=== PATIENT | female | born 1970 | race Caucasian/White ===

== ENCOUNTER 2017-12-15 16:19 | Emergency (ER) | payer BC ==
[2017-12-15 16:45] VITALS: BP 144/89
--- NOTE | 2017-12-15 17:03 | UC ---
Lower Extremity/Ankle HPI - HPI Summary HPI Summary: 46 y/o female presents to the urgent care c/o B/L great toe nail infection w/ ingrown toe nails and oozing yellowish discharge for the past week. Pt reports he has PMHX of breast cancer and DM about to finished her last treatment of Taxol next week. Pt states she saw the infection and though she can wait until her last treatment next week. However, she saw the yellowish nail discharge. Pain is 4/10 at touch. Pt denies fever, numbness or tingling sensation over the toes, SOB, chest pain, abdominal pain, N/V/D - History of Current Complaint Chief Complaint: UCLowerExtremity Stated Complaint: BILATERAL GREAT TOE COMPLAINT Time Seen by Provider: 12/15/17 17:02 Hx Obtained From: Patient Hx Last Menstrual Period: n/a ?: No Onset/Duration: Gradual Onset, Lasting Weeks - 1 week, Worse Since - this morning Severity Initially: Mild Severity Currently: Moderate Pain Intensity: 4 Pain Scale Used: 0-10 Numeric Aggravating Factor(s): Standing, Ambulation Alleviating Factor(s): Rest, Elevation Able to Bear Weight: Yes - Risk Factors Gout Risk Factors: Negative, Diabetes DVT Risk Factors: Negative Septic Arthritis Risk Factor: Negative - Allergies/Home Medications Allergies/Adverse Reactions: Allergies Allergy/AdvReac Type Severity Reaction Status Date / Time No Known Allergies Allergy Verified 12/15/17 16:46 Home Medications: Home Medications Acetaminophen/Diphenhydramine [Acetaminophen Pm Caplet] 1 each PO DAILY [History Confirmed 12/15/17] Atorvastatin* [Lipitor 10 MG*] 10 mg PO 2100 12/15/17 [History Confirmed ] Fexofenadine/Pseudoephedrine [Danna-D 24 Hour Tablet] 1 each PO DAILY [History Confirmed 12/15/17] Gabapentin CAP(*) [Neurontin 100 mg CAP(*)] 200 mg PO DAILY 12/15/17 [History Confirmed 12/15/17] Levothyroxine TAB* [Synthroid 25 MCG TAB*] 25 mcg PO 0800 12/15/17 [History Confirmed 12/15/17] Loratadine [Claritin 10 MG CAP] 10 mg PO DAILY 12/15/17 [History Confirmed 12/15] PACLItaxel* [Taxol*] 0 mg WEEKLY 12/15/17 [History Confirmed 12/15/17] PMH/Surg Hx/FS Hx/Imm Hx Previously Healthy: Yes Endocrine History: Diabetes, Hypothyroidism Cancer History: Breast Cancer - Surgical History Surgical History: Yes Surgery Procedure, Year, and Place: hysterectomyv 2005. Lumpectomy 07/14 - Family History Known Family History: Positive: Diabetes - Social History Occupation: Unemployed Lives: With Family Alcohol Use: Rare Substance Use Type: None Smoking Status (MU): Never Smoked Tobacco Review of Systems Constitutional: Negative Skin: Other - B/L first great [place]own toe nails w/ yellowish drainage Eyes: Negative ENT: Negative Respiratory: Negative Cardiovascular: Negative Gastrointestinal: Negative Genitourinary: Negative Motor: Negative Neurovascular: Negative Musculoskeletal: Other: - B/l great toes pain Psychological: Negative Is Patient Immunocompromised?: No All Other Systems Reviewed And Are Negative: Yes Physical Exam - Summary Physical Exam Summary: Vital Signs Reviewed: Yes General: well developed, well nourished female sitting in the examining table w/ o any apparent distress Eye Exam: Normal Eyes: Positive: Conjunctiva Clear - PERRLA, EOMI, fundi grossly normal ENT: Positive: Normal ENT inspection, Hearing grossly normal, Pharynx normal, TMs normal Neck: Positive: Supple, Nontender, No Lymphadenopathy Respiratory: Positive: Chest non-tender, Lungs clear, Normal breath sounds, No respiratory distress Cardiovascular: Positive: RRR, No Murmur, Pulses Normal, Brisk Capillary Refill Abdomen Description: Positive: Nontender, No Organomegaly, Soft. Negative: CVA Tenderness (R), CVA Tenderness (L) Bowel Sounds: Positive: Present Musculoskeletal: Positive: Strength Intact, ROM Intact, No Edema Neurological: Positive: Alert, Muscle Tone Normal Psychological Exam: Normal Skin: Positive: B/L great toes w/ ingrown toe nails on the medial aspects of nails w/ yellowish drainage and mild surrounding erythema and tender to palpation. both great toe nails are yellowish in color nails w/ onychomycosis and partially avulse nails. FROM of B/L great toes, sensation is intact, capillary refill WNL, reflexes WNL, pulses WNL Triage Information Reviewed: Yes Vital Signs: Initial Vital Signs Temp 98.1 F 12/15/17 16:40 Pulse 119 12/15/17 16:40 Resp 16 12/15/17 16:40 BP 144/89 12/15/17 16:40 Pulse Ox 100 12/15/17 16:40 Lower Extremity Course/Dx - Course Course Of Treatment: 46 y/o female presents to the urgent care c/o B/L great toe nail infection w/ ingrown toe nails and oozing yellowish discharge for the past week. Pt reports he has PMHX of breast cancer and DM about to finished her last treatment of Taxol next week. Pt states she saw the infection and though she can wait until her last treatment next week. However, she saw the yellowish nail discharge. Pain is 4/10 at touch. Pt denies fever, numbness or tingling sensation over the toes, SOB, chest pain, abdominal pain, N/V/D. Hx obtained. Hx obtained. Pt w/B/L great toes w/ ingrown toe nails on the medial aspects of nails w/ yellowish drainage and mild surrounding erythema and tender to palpation. both great toe nails are yellowish in color w/ onychomycosis and partially avulse nails. FROM of B/L great toes, sensation is intact, capillary refill WNL, reflexes WNL, pulses WNL. Pt 's symptoms discussed w/ DR Mohamud in regards to the need of Pt to go to the ER since Pt is immunosupressed. Dr Mohamud recommeded to give Rocefin IM inj, remove ingrown toe nails, wound cultures and f/u tomorrow w/ PCP or Powder Expert for further evalution and treatment. Ingrown toenail removal procedure:The procedure was explained and consent obtained. Ethel protocol performed. B/L toes irrigated w/ sterile water and cleaned 3X w/ iodine swabs. Digital nerve block procedure performed with 6mL of Lido 2% with good anesthesia obtained of bothe great toes. Sterile drape and prep were done. Both sides of the toenail removed with nail splitting scissors. However since both great toenails were partially avulse due to fungal infection, the nails were cut w/ scissor to almost base of nail.granulation tissue removed with Silver nitrate stick. topical Bacitracin applied over the area. Wound covered with sterile dressing. The patient tolerated the procedure well.Post -op shoes given. Pt given Rocefin IM inj. Pt tolerated well IM inj. Pt Rx Bactrim PO and Bacitracin oint. Wound culture sent to lab. Pt given referral w/ Podistrist Dr Rock as soon as possible for further treatment. If unable to get a soon appt,advised return to clinic or PCP for re-check if wound was improving. Pt has f/u appt w/ Oncologist in 2 days 12/17/2017 to see if she can continue w/ Taxol Tx. Pt's BP is elevated today advised to decrease salt in diet, monitor BP and f/u with PCP for further management.Pt understood and agreed with D/C instructions. Pt Left the clinic ambulating A&OX3. - Differential Dx/Diagnosis Differential Diagnosis/HQI/PQRI: Fracture (Closed), Gout, Other - ingrown toe nails Provider Diagnoses: 1- B/L ingrown first toe nail removal and partial nail avulsion. 2-Elevated BP w/o Hx HTN Discharge - Sign-Out/Discharge Documenting (check all that apply): Discharge - Discharge Plan Condition: Stable Disposition: HOME Prescriptions: Bacitracin OINTMENT* 1 applic TOPICAL TID #1 tube Ibuprofen TAB* [Motrin TAB* 800 MG] 800 mg PO Q6H PRN #30 tab PRN Reason: Pain Sulfamethox/Trimethoprim DS* [Bactrim DS 800/160 TAB*] 1 tab PO BID #20 tab Patient Education Materials: Ingrown Nail (ED), Low-Sodium Diet (ED), Nail Avulsion (ED), Partial Nail Avulsion for Ingrown Nail (DC) Referrals: Pranav LOCKHART,Thiago Manzanares [Doctor of Podiatric Medicine] - 1 Day Fahad Babcock MD [Primary Care Provider] - 1 Day Additional Instructions: 1-Please take Ibuprofen PO q6-8hrs as directed to alleviate pain and swelling. Take full course of antibiotic to avoid resistance 2-Please apply Bacitracin topical cream TID as direced, elevate your feet at night time and avoid long periods of standing up. Avoid strenuous exercise. 3- keep wound dry an d clean 4- Please f/u with your Powder Expert DR Thiago Rock in 1 day for further evaluation and treatment 5- If you don't get an appt soon w/ arborist please return here at the clinic for re-check and see if symptoms are improving.. 6- If you develop fever, severe pain with swelling please go immediately to the ER for further management 7-Your BP is elevated today. please decrease salt in your diet, monitor BP and if it continues to be elevated please f/u with your PCP for further management - Billing Disposition and Condition Condition: STABLE Disposition: HOME
[2017-12-15] MEDS ORDERED: Lidocaine 2% 10 ML* VIAL INJ ONE (17:24)
[2017-12-15] MEDS ORDERED: cefTRIAXone VIAL(*) 1,000 MG VIAL IM ONE (17:28)
[2017-12-15] MEDS ORDERED: Lidocaine 2% PF * 5 ML VIAL ONE (17:29)
[2017-12-15] MEDS ORDERED: Silver Nitrate/Potassium Nitr* 1 EA STICK TOPICAL ONE (17:38)
[2017-12-15] MEDS ORDERED: Silver Nitrate/Potassium Nitr* 1 EA STICK ONE (18:21)
== END 2017-12-15 19:22 | disposition home or self-care (01) ==
LOC: UCCORT 16:19
DX: L60.0 Ingrowing nail (principal); B96.89 Other specified bacterial agents as the cause of diseases classified elsewhere; R03.0 Elevated blood-pressure reading, without diagnosis of hypertension; E11.9 Type 2 diabetes mellitus without complications; E03.9 Hypothyroidism, unspecified; C50.919 Malignant neoplasm of unspecified site of unspecified female breast
CPT/HCPCS: 11730; 87070; 87076; 87077; 87185; 87186; 87205; 87640; 87641; 96372; 99213; A9270-GY; G0463; J0696

== ENCOUNTER 2017-12-16 13:45 | Emergency (ER) | payer BC ==
[2017-12-16 14:25] VITALS: BP 134/64
--- NOTE | 2017-12-16 14:36 | UC ---
Skin Complaint HPI - HPI Summary HPI Summary: Pt here for folow up from yesterday with ingrown toe nail removal. Pt had bilateral ingrown nail in bilateral great toes and were removed here yesterday an dis here for recheck. P thas type 2 diabetes and is currently under treatment fo rbreast cancer she was supposed to receive cycle 12 of taxol this week. - History of Current Complaint Chief Complaint: UCSkin Time Seen by Provider: 12/16/17 14:29 Stated Complaint: BOTH BIG TOES INFECTED-RECHECK Hx Obtained From: Patient Hx Last Menstrual Period: n/a ?: No Onset/Duration: Sudden Onset Skin Exposure Onset/Duration: Days Ago - 1 day ago Onset Severity: Moderate Current Severity: Mild Pain Intensity: 2 Location: Discrete - bilateral great toes Character: Swelling, Pain Aggravating Factor(s): Touch Alleviating Factor(s): Other - previous treatment Associated Signs & Symptoms: Positive: Tenderness Related History: Other: - history of breast cancer and DM II - Allergy/Home Medications Allergies/Adverse Reactions: Allergies Allergy/AdvReac Type Severity Reaction Status Date / Time No Known Allergies Allergy Verified 12/16/17 14:22 Review of Systems Constitutional: Negative Skin: Other - toe nail removal Eyes: Negative ENT: Negative Respiratory: Negative Cardiovascular: Negative Gastrointestinal: Negative Genitourinary: Negative Motor: Negative Neurovascular: Negative Musculoskeletal: Myalgia Neurological: Negative Psychological: Negative Is Patient Immunocompromised?: No All Other Systems Reviewed And Are Negative: Yes PMH/Surg Hx/FS Hx/Imm Hx Previously Healthy: Yes - Surgical History Surgical History: Yes Surgery Procedure, Year, and Place: hysterectomyv 2005. Lumpectomy 07/14 - Family History Known Family History: Positive: Diabetes - Social History Occupation: Employed Full-time Lives: With Family Alcohol Use: Rare Substance Use Type: None Smoking Status (MU): Never Smoked Tobacco Have You Smoked in the Last Year: No Physical Exam Triage Information Reviewed: Yes Appearance: Well-Appearing Vital Signs: Initial Vital Signs Temp 99 F 12/16/17 14:19 Pulse 115 12/16/17 14:19 Resp 16 12/16/17 14:19 BP 134/64 12/16/17 14:19 Pulse Ox 98 12/16/17 14:19 Vital Signs Reviewed: Yes Eye Exam: Normal ENT Exam: Normal Dental Exam: Normal Respiratory: Positive: No respiratory distress Musculoskeletal Exam: Other Musculoskeletal: Positive: Other: - bilateral great toes, with mild discharge and staining from iodine on bilateral edges of nail bed of great toes. Neurological Exam: Normal Psychological Exam: Normal Skin Exam: Other - bilateral wounds, no discharge, mild odor , mild erythema Course/Dx - Differential Diagnoses - Skin Complaint Differential Diagnoses: Cellulitis, Other - healing wound - Diagnoses Provider Diagnoses: healing wounds bilateral great toes Discharge - Sign-Out/Discharge Documenting (check all that apply): Discharge - Discharge Plan Condition: Stable Disposition: HOME Patient Education Materials: Acute Wound Care (ED) Referrals: Fahad Babcock MD [Primary Care Provider] - As Soon As Possible Additional Instructions: Wound care in [place], [place] [facility] [address] Enter through the [facility] via [facility] - Billing Disposition and Condition Condition: STABLE Disposition: HOME
== END 2017-12-16 14:52 | disposition home or self-care (01) ==
LOC: UCCORT 13:45
DX: Z51.89 Encounter for other specified aftercare (principal); L60.0 Ingrowing nail; E11.9 Type 2 diabetes mellitus without complications; C50.919 Malignant neoplasm of unspecified site of unspecified female breast
CPT/HCPCS: 99212; G0463

== ENCOUNTER 2019-06-09 15:18 | Emergency (ER) | payer BC ==
[2019-06-09 15:55] VITALS: BP 116/81
--- NOTE | 2019-06-09 16:21 | ED ---
GI/ HPI - HPI Summary HPI Summary: 48 yr old female with the complaint of dysuria, frequency of urination, hesitancy of urination. She denies fever, chills. Denies NV. Denies back pain. She has no other complaints. - History of Current Complaint Chief Complaint: UCGU Time Seen by Provider: 06/09/19 15:57 Stated Complaint: URINARY Hx Last Menstrual Period: n/a Pain Intensity: 0 - Allergy/Home Medications Allergies/Adverse Reactions: Allergies Allergy/AdvReac Type Severity Reaction Status Date / Time No Known Allergies Allergy Verified 12/16/17 14:22 PMH/Surg Hx/FS Hx/Imm Hx Endocrine/Hematology History: Reports: Hx Diabetes, Hx Thyroid Disease - hypo - Cancer History Cancer Type, Location and Year: Breast cancer 2017 - Surgical History Surgery Procedure, Year, and Place: hysterectomyv 2005. Lumpectomy 07/14. 2018 breast reconstruction Infectious Disease History: No Infectious Disease History: Denies: Traveled Outside the [place] in Last 30 Days - Family History Known Family History: Positive: Diabetes - Social History Occupation: Employed Full-time Alcohol Use: Rare Substance Use Type: Reports: None Smoking Status (MU): Never Smoked Tobacco Have You Smoked in the Last Year: No Review of Systems Constitutional: Negative Positive: dysuria, frequency All Other Systems Reviewed And Are Negative: Yes Physical Exam Triage Information Reviewed: Yes Vital Signs On Initial Exam: Initial Vitals Temp Pulse Resp BP Pulse Ox 98 F 84 16 116/81 100 06/09/19 15:51 06/09/19 15:51 06/09/19 15:51 06/09/19 15:51 06/09/19 15:51 Vital Signs Reviewed: Yes Appearance: Positive: Well-Appearing, No Pain Distress Skin: Positive: Warm, Skin Color Reflects Adequate Perfusion Head/Face: Positive: Normal Head/Face Inspection Eyes: Positive: EOMI ENT: Positive: Normal ENT inspection Neck: Positive: Nontender Respiratory/Lung Sounds: Positive: Clear to Auscultation, Breath Sounds Present Cardiovascular: Positive: RRR. Negative: Murmur Abdomen Description: Negative: CVA Tenderness (R), CVA Tenderness (L) Musculoskeletal: Positive: Strength/ROM Intact Neurological: Positive: Sensory/Motor Intact, Alert, Oriented to Person Place, Time, CN Intact II-III, Normal Gait, Speech Normal Psychiatric: Positive: Normal Diagnostics - Vital Signs Vital Signs Temp Pulse Resp BP Pulse Ox 06/09/19 15:51 98 F 84 16 116/81 100 - Laboratory Lab Results: Lab Results 06/09/19 Range/Units 16:02 POC Urine Color Yellow POC Urine Clarity Cloudy POC Urine pH 7.0 (5-9) POC Ur Specif Apex 1.020 (1.010-1.030) POC Urine Protein 1+ A (Negative) POC Ur Glucose (UA) Negative (Negative) POC Urine Ketones Negative (Negative) POC Urine Blood 2+ A (Negative) POC Urine Nitrite Positive A (Negative) POC Urine Bilirubin Negative (Negative) POC Urine Urobilinogen 0.2 (Negative) POC U Leukocyte Esteras 3+ A (Negative) Lab Statement: Any lab studies that have been ordered have been reviewed, and results considered in the medical decision making process. GIGU Course/Dx - Course Course Of Treatment: 48 yr old with UTI. Rx BactrimDS. - Diagnoses Provider Diagnoses: UTI (urinary tract infection) Discharge ED - Sign-Out/Discharge Documenting (check all that apply): Patient Departure All imaging exams completed and their final reports reviewed: No Studies - Discharge Plan Condition: Good Disposition: HOME Prescriptions: Sulfamethox/Trimethoprim DS* [Bactrim DS 800/160 TAB*] 1 tab PO BID #20 tab Patient Education Materials: Urinary Tract Infection in Women (ED) Referrals: Fahad Babcock MD [Primary Care Provider] - 5 Days - Billing Disposition and Condition Condition: GOOD Disposition: Home
== END 2019-06-09 16:21 | disposition home or self-care (01) ==
LOC: UCCORT 15:18
DX: N39.0 Urinary tract infection, site not specified (principal); E11.9 Type 2 diabetes mellitus without complications
CPT/HCPCS: 81003; 87077; 87086; 87186; 99212; G0463